=== PATIENT | female | born 1985 | race Caucasian/White ===

== ENCOUNTER → 2021-02-28 11:40 | Outpatient (CLI) | payer OTHER, SELFPAY ==
[2021-02-28 12:30] LABS: Absolute Lymphocyte Count 1.82 X10^3/uL (0.83-4.51); Absolute Neutrophil Count 2.9 X10^3/uL (2.0-7.7); Basophil# 0.04 X10^3/uL; Basophil% 0.7 % (0-1); Eosinophil# 0.07 X10^3/uL; Eosinophils% 1.3 % (0-5); Hematocrit 37.8 % (37-47); Hemoglobin 12.2 g/dL (12.0-15.0); Lymphocyte # 1.82 X10^3/ul (0.83-4.51); Lymphocyte % 33.7 % (19-41); Mean Corp Hgb Conc 32.3 g/dL (32-36); Mean Platelet Vol. 10.7 fl (6.2-12.0); Monocyte# 0.52 X10^3/uL; Monocyte% 9.6 % (0-10); NRBC Flagged by Analyzer 0 % (0-5); Neutrophil # 2.94 X10^3/uL (2.7-7.7); Neutrophil % 54.5 % (47-70); Platelet Count 286 K/mm3 (150-450); RBC Distribution Width SD 42.9 fl (35.1-43.9); White Blood Count 5.4 K/mm3 (4.4-11.0)
[2021-02-28 12:46] LABS: Hemoglobin A1c 5.1 % (3.8-5.6)
[2021-02-28 13:04] LABS: Vitamin D,25 Hydroxy 41.4 ng/mL
[2021-02-28 13:09] LABS: ALB/GLOB Ratio 1.2 RATIO (0.9-2.4); AST(SGOT) 17 U/L (15-37); Alanine Aminotransfer ALT/SGPT 34 U/L (13-56); Albumin, Serum 3.8 g/dL (3.2-5.0); Alkaline Phosphatase 43 U/L (45-117); Anion Gap 5 (5-15); BUN 11 mg/dL (7-18); Calcium,Total 8.6 mg/dL (8.5-10.1); Chloride 105 mmol/L (98-107); Cholesterol 144 mg/dL (200); Creatinine, Serum 0.69 mg/dL (0.55-1.02); EST Glomerular Filtration Rate 102 mL/min (>60); Est Glom Filt Rate - Afr Amer 124 mL/min (>60); Globulin 3.1 g/dL (2.2-4.2); Glucose 78 mg/dL (74-106); High Density Lipoprotein 66 mg/dL; Potassium 3.6 mmol/L (3.5-5.1); Protein, Total 6.9 g/dL (6.4-8.2); Sodium Level 138 mmol/L (136-145); Thyroid Stim Hormone (TSH) 1.13 uIU/mL (0.358-3.74); Triglycerides 61 mg/dL; Very Low Density Lipoprotein 12 mg/dL (5-40)
== END ==
PROVIDERS: PCP Internal Medicine; Referring Provider Internal Medicine; Visit Provider Internal Medicine
DX: E55.9 Vitamin D deficiency, unspecified (principal); Z13.1 Encounter for screening for diabetes mellitus; Z13.220 Encounter for screening for lipoid disorders
CPT/HCPCS: 36415; 80053; 80061; 82306; 83036; 84443; 85025

== ENCOUNTER → 2021-08-21 | Outpatient (CLI) | payer OTHER, SELFPAY ==
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
== END | disposition home or self-care (01) ==
LOC: RAD 12:08
PROVIDERS: PCP Internal Medicine; Referring Provider Chiropractor; Visit Provider Chiropractor
DX: S23.41XA Sprain of ribs, initial encounter (principal)
CPT/HCPCS: 71101

== ENCOUNTER → 2021-08-22 | Outpatient (CLI) | payer OTHER, SELFPAY ==
--- NOTE | 2021-08-22 19:25 | RAD_ITS ---
STUDY: X-RAY CHEST REASON FOR EXAM: Female, 36 years old. Abnormal chest x-ray, left infra hilar fullness TECHNIQUE: PA and lateral views of the chest. COMPARISON: Right rib series of 08/21/2021. FINDINGS: The frontal view again demonstrates soft tissue fullness at the inferior left lung hilum, unchanged, with a subtle 5 cm rounded area of corresponding soft tissue density projected anterior to the hilar regions on the lateral view. No pneumonia or peribronchial cuffing. Normal right lung hilum. No mediastinal widening. There is no demonstrated pleural abnormality. Normal heart size and pulmonary vasculature. Thoracic aorta is normal in caliber. Normal visualized thoracic spine. Normal visualized ribs, clavicles, and shoulders. There is no demonstrated abnormality of the visualized soft tissue structures of the upper abdomen. RAD/Chest PA and Lateral IMPRESSION: No significant interval change. Persistent soft tissue fullness at the inferior left lung hilum, possibly due to adenopathy. Chest CT again recommended for further characterization of this abnormality. Electronically Signed: Je Bass MD at 6:58 EDT ,
== END | disposition home or self-care (01) ==
LOC: RAD 19:20
PROVIDERS: PCP Internal Medicine; Visit Provider Internal Medicine
DX: R93.89 Abnormal findings on diagnostic imaging of other specified body structures (principal)
CPT/HCPCS: 71046

== ENCOUNTER → 2021-09-05 | Outpatient (CLI) | payer OTHER, SELFPAY ==
--- NOTE | 2021-09-05 16:59 | CT_ITS ---
EXAM: CT CHEST WITH INTRAVENOUS CONTRAST CLINICAL INDICATION: Abnormal cxr, left infrahilar fullness TECHNIQUE: Helically acquired images were obtained of the chest with intravenous contrast. This CT exam was performed using one or more of the following dose reduction techniques: automated exposure control, adjustment of the mA and/or kV according to patient size, and/or use of iterative reconstruction technique. This report was created using [employer] report generation technology. CONTRAST: IV 100mL Isovue-300 RADIATION DOSE: CTDIvol = 15.47 mGy, DLP = 289.93 mGy-cm COMPARISON: None. FINDINGS: LUNGS AND PLEURAL SPACES: See below. HEART: There is fluid density mass of the left side of the heart measuring 48 x 20 x 102 mm. This extends to the left hilum and is consistent for a pericardial cyst. No significant coronary artery calcifications. MEDIASTINUM: Unremarkable. No mediastinal or hilar adenopathy. Esophagus is unremarkable. No hiatal hernia. THYROID: Unremarkable. No thyroid lesions. BONES/JOINTS: Healing right anterior 3rd rib fracture. No suspicious lytic or blastic abnormality. VASCULATURE: Unremarkable. Thoracic aorta is non-dilated. No thoracic aortic dissection. No obvious central pulmonary embolism although this study was not performed with the pulmonary embolism protocol. CT/Chest WITH Contrast IMPRESSION: 1. Healing right anterior 3rd rib fracture. 2. There is fluid density mass of the left side of the heart measuring 48 x 20 x 102 mm. This extends to the left hilum and is consistent for a pericardial cyst. Electronically Signed: Davis Toth MD at 18:05 EDT ,
== END | disposition home or self-care (01) ==
LOC: CT 16:57
PROVIDERS: PCP Internal Medicine; Visit Provider Internal Medicine
DX: R93.89 Abnormal findings on diagnostic imaging of other specified body structures (principal)
CPT/HCPCS: 71260; Q9967

== ENCOUNTER → 2021-11-05 | Outpatient (CLI) | payer OTHER, SELFPAY ==
--- NOTE | 2021-11-05 14:54 | ECHOD_ITS ---
Version 2 Reason For Study: PERICARDIAL CYST Procedure This was a 2D Doppler, Color Flow transthoracic echocardiogram. The exam was of adequate technical quality. Exam performed in department. Left Ventricle Normal LV size. Left ventricular systolic function is normal. The estimated ejection fraction is 65 %. No evidence for diastolic dysfunction. Right Ventricle Normal RV size. Normal systolic function. Atria Normal left atrium. Normal right atrium. No doppler evidence for ASD. Mitral Valve There is no mitral annular calcification. Normal mitral valve. Trivial mitral valve insufficiency. Tricuspid Valve Normal tricuspid valve. Trivial tricuspid valve insufficiency. Unable to estimate RV systolic pressure due to insufficient tricuspid regurgitant envelope. Aortic Valve Trisinus/trileaflet aortic valve. Normal aortic valve. Pulmonic Valve Normal pulmonic valve. Trivial pulmonic valve insufficiency. Great Vessels Normal sized aortic root. Pericardium/Pleural No pericardial effusion. MMode/2D Measurements & Calculations LVIDd: 4.9 cm IVSd: 0.58 cm Ao root diam: 3.0 cm LVIDs: 3.2 cm LVPWd: 0.80 cm RVDd: 3.1 cm FS: 34.0 % LAV(MOD-sp4): 38.1 ml LVAd ap4: 28.7 cm2 SV(MOD-sp4): 54.4 ml LVLd ap4: 7.5 cm EDV(MOD-sp4): 91.9 ml EDV(sp4-el): 92.7 ml LVAs ap4: 16.2 cm2 LVLs ap4: 5.7 cm ESV(MOD-sp4): 37.4 ml ESV(sp4-el): 39.1 ml EF(MOD-sp4): 59.3 % EF(sp4-el): 57.8 % SV(sp4-el): 53.6 ml LA A4 area: 14.8 cm2 LA dimension(2D): 3.7 cm RA A4 area: 15.7 cm2 Time Measurements MV dec time: 0.13 sec Doppler Measurements & Calculations MV E max roge: 82.6 cm/sec Lat Peak E' Roge: 16.5 cm/sec Med Peak E' Roge: 9.8 cm/sec MV A max roge: 70.0 cm/sec E/E' lat: 5.0 E/E' med: 8.4 MV E/A: 1.2 MV V2 max: 105.3 cm/sec Ao V2 max: 130.1 cm/sec MV max P.4 mmHg MV dec slope: 806.3 cm/sec2 Ao max P.8 mmHg MV V2 mean: 58.5 cm/sec Ao V2 mean: 93.6 cm/sec MV mean P.6 mmHg Ao mean P.0 mmHg MV V2 VTI: 28.9 cm Ao V2 VTI: 30.2 cm AV (velocity ratio): 0.79 LV V1 max: 111.0 cm/sec PA V2 max: 106.6 cm/sec LV V1 max P.9 mmHg PA V2 mean: 74.8 cm/sec LV V1 mean P.8 mmHg LV V1 mean: 77.9 cm/sec LV V1 VTI: 23.9 cm ECHO/Echo Complete Interpretation Summary Left ventricular systolic function is normal. The estimated ejection fraction is 65 %. Trivial mitral valve insufficiency. Trivial tricuspid valve insufficiency. Trivial pulmonic valve insufficiency. Unable to estimate RV systolic pressure due to insufficient tricuspid regurgita nt envelope. No evidence for diastolic dysfunction. Addendum: Based upon further review of the 2D echocardiographic images obtained there magdaleno ears to be, on select images, the appearance of a small area of echolucency near the lateral aspect o f the left ventricle of uncertain etiology-a pericardial cyst may not necessarily be able to be excl uded. Ordering Physician: Ivania Sparks Referring Physician: Ivania Sparks Performed By: Virginia Pickard RCS
== END | disposition home or self-care (01) ==
PROVIDERS: PCP Internal Medicine; Referring Provider Internal Medicine; Visit Provider Internal Medicine
DX: Q24.8 Other specified congenital malformations of heart (principal)
CPT/HCPCS: 93306

== ENCOUNTER → 2022-03-05 | Outpatient (CLI) | payer OTHER, SELFPAY ==
--- NOTE | 2022-03-05 10:59 | ECHOL_ITS ---
Reason For Study: PERICARDIAL CYST Procedure This was a limited 2D transthoracic echocardiogram. Limited views were obtained. Exam performed in department. Left Ventricle Left ventricular systolic function is normal. The estimated ejection fraction is 65 %. Right Ventricle Normal systolic function. Atria Normal left atrium. Normal right atrium. Mitral Valve There is no mitral annular calcification. Normal mitral valve. Tricuspid Valve Normal tricuspid valve. Aortic Valve Trisinus/trileaflet aortic valve. Normal aortic valve. Pulmonic Valve The pulmonic valve is not well visualized. Pericardium/Pleural No pericardial effusion. MMode/2D Measurements & Calculations LVIDd: 4.6 cm IVSd: 0.93 cm LAV(MOD-bp): 45.2 ml LVIDs: 3.4 cm LVPWd: 1.1 cm LAV(MOD-bp) Indexed: 23.6 ml/m2 FS: 24.3 % LAV(MOD-sp2): 54.8 ml LAV(MOD-sp4): 32.6 ml LVAd ap4: 30.8 cm2 SV(MOD-sp4): 59.9 ml SV(sp4-el): 61.1 ml LVLd ap4: 8.6 cm EDV(MOD-sp4): 94.3 ml EDV(sp4-el): 93.0 ml LVAs ap4: 16.3 cm2 LVLs ap4: 7.1 cm ESV(MOD-sp4): 34.3 ml ESV(sp4-el): 31.9 ml EF(MOD-sp4): 63.6 % EF(sp4-el): 65.7 % LA A4 area: 14.2 cm2 LA dimension(2D): 3.7 cm RA A4 area: 10.8 cm2 ECHO/Echo, Limited Study Interpretation Summary Limited views were obtained. Left ventricular systolic function is normal. The estimated ejection fraction is 65 %. Based upon 2D echocardiographic images obtained there appears to be, on select images, the appearance of a small area of echolucency near the lateral aspect of the left v entricle of uncertain etiology-a pericardial cyst may not necessarily be able to be excluded. Compared with the previous transthoracic echocardiogram from 11-05-2021 there ar e similar type changes. Ordering Physician: Ernesto Agudelo Referring Physician: Ernesto Agudelo Performed By: Virginia Pickard RCS
== END | disposition home or self-care (01) ==
LOC: CVS 10:58
PROVIDERS: PCP Internal Medicine; Referring Provider Internal Medicine Cardiovascular Disease; Visit Provider Internal Medicine Cardiovascular Disease
DX: Q24.8 Other specified congenital malformations of heart (principal)
CPT/HCPCS: 93308

== ENCOUNTER → 2023-05-22 | Outpatient (CLI) | payer BC, SELFPAY ==
--- NOTE | 2023-05-22 07:09 | ECHOD_ITS ---
Reason For Study: PERICARDIAL CYST Procedure This was a 2D Doppler, Color Flow transthoracic echocardiogram. Exam performed in department. Left Ventricle Normal LV size. Left ventricular systolic function is normal. The estimated ejection fraction is 60 %. No regional wall motion abnormalities noted. Right Ventricle Normal RV size. Normal systolic function. Atria Normal left atrium. Normal right atrium. Mitral Valve Normal mitral valve. Mild (1+) eccentric mitral valve insufficiency. Tricuspid Valve Normal tricuspid valve. Mild tricuspid valve insufficiency. Pulmonary artery systolic pressure is 20 mmHg. Aortic Valve Normal aortic valve. Pulmonic Valve Normal pulmonic valve. Mild (1+) pulmonic valve insufficiency. Great Vessels Normal aortic root. The pulmonary artery is normal size. Normal inferior vena cava. Pericardium/Pleural No pericardial effusion. MMode/2D Measurements & Calculations LVIDd: 4.9 cm IVSd: 0.81 cm Ao root diam: 2.9 cm LVIDs: 3.3 cm LVPWd: 1.0 cm RVDd: 3.6 cm FS: 32.6 % LAV(MOD-bp): 39.7 ml LVAd ap4: 32.2 cm2 SV(MOD-sp4): 68.2 ml LAV(MOD-bp) Indexed: 23.4 ml/m2 LVLd ap4: 8.4 cm LAV(MOD-sp2): 40.5 ml EDV(MOD-sp4): 104.0 ml LAV(MOD-sp4): 35.2 ml EDV(sp4-el): 105.0 ml LVAs ap4: 16.7 cm2 LVLs ap4: 6.6 cm ESV(MOD-sp4): 35.8 ml ESV(sp4-el): 36.2 ml EF(MOD-sp4): 65.6 % EF(sp4-el): 65.5 % SV(sp4-el): 68.8 ml LA A4 area: 15.7 cm2 LA dimension(2D): 3.2 cm RA A4 area: 16.3 cm2 TAPSE: 2.4 cm Time Measurements MV dec time: 0.20 sec Doppler Measurements & Calculations MV E max roge: 71.2 cm/sec Lat Peak E' Roge: 17.4 cm/sec Med Peak E' Roge: 13.3 cm/sec MV A max roge: 61.3 cm/sec E/E' lat: 4.1 E/E' med: 5.3 MV E/A: 1.2 Ao V2 max: 122.0 cm/sec LV V1 max: 107.1 cm/sec PA V2 max: 79.6 cm/sec Ao max P.0 mmHg LV V1 max P.6 mmHg PI end-d roge: 78.6 cm/sec TR max roge: 196.9 cm/sec TR max P.5 mmHg ECHO/Echo Complete Interpretation Summary Normal LV size. Left ventricular systolic function is normal. The estimated ejection fraction is 60 %. Mild (1+) eccentric mitral valve insufficiency. Ordering Physician: Yaima Mina Referring Physician: LEIGHANN PITTS Performed By: Kiana Forte RDCS
--- OUTSIDE RECORDS SUMMARY | 2023-05-22 07:11 | XMS RPT_ITS | CCD ---
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 Role Phone TYLER EAST Primary Care Unavail SAI Mcclain Attending Unavail Tyler Morales Primary Care Provider U viola Rhodes MD, Koki Garcia Primary Care Provider Ernesto Agudelo Unavailable Clare PULLIAM, Ivania Bauman Unavailable [phone] Medications Current Medications Medication Drug Class(es) Dates Sig (Normalized) Sig (Original) amoxicillin 500 mg oral capsule (1 source) Penicillin-class Antibacterial Start: 07-05-2018 End: 07-15-2018 take 1 capsule by mouth twice daily amoxicillin (AMOXIL) 500 MG capsule Indications: Sore throat Take 1 (one) capsule (500 mg total) by mouth 2 (two) times a day for 10 days . 20 capsule 0 07/05/2018 07/15/2018 Active prenat.vits,almas,mi u-zwhq-yppqg Tab (1 source) prenat.vits,almas, m ic-xcet-qmmxj Tab Take by mouth . 0 Active Problems Active Problems Problem Classification Problem Date Documented Da te Episodic/Chronic Other upper respiratory infections (3 sources) Acute pharyngitis, unspecified; Translations: [Sore throat symptom] Onset: 07-05-2018 Episodic Past or Other Problems Problem Classification Problem Date Documented Da te Episodic/Chronic Abdominal pain (1 source) Umbilical pain; Translations: [Periumbilical pain] Onset: 09-01-2011 09-01-2011 Episodic NEGATED: Highlighted row has been ruled out!Unclassified (1 source) No known active problems Results Test Name Value Interpretation Reference Range Facil ity Vital Signs Date Time Vital Sign Value Performing Clinician Faci lity 07-05-2018 15:43-0400 BMI (Body Mass Index) 28.41 kg/m2 Saibhavesh Mallory [facility] 07-05-2018 15:43-0400 Body Temperature 98.2 [degF] Saibhavesh Mallory [facility] 07-05-2018 15:43-0400 Body weight 79.83 kg Saibhavesh Mallory [facility] 07-05-2018 15:43-0400 BP Diastolic 73 mm[Hg] Sai Conn [facility] 07-05-2018 15:43-0400 BP Systolic 111 mm[Hg] Saibhavesh Mallory [facility] 07-05-2018 15:43-0400 Height 167.6 cm Sai [facility] 07-05-2018 15:43-0400 Pulse (Heart Rate) 79 /min Sai [facility] 07-05-2018 15:43-0400 Pulse Oximetry 98 % Sai [facility] 07-05-2018 15:43-0400 Respiratory Rate 16 /min Sai Conn [facility] Encounters Encounter Date Encounter Type Care Provider Facility Start: 03-20-2022 Telephone encounter Zeeshan puckett MD Work Phone: Cardiothoracic Procedures Date Procedure Procedure Detail Performing Clinician Start: 07-05-2018 Streptococcus pyogen es antigen assay Sai Mallory Work Phone: Plan of Treatment Date Care Activity Detail Author Start: 01-31-2023 Tetanus vaccination TETANUS EVERY 10 YR [facility] Start: 01-31-2023 Urine microalbumin profile DTA P,TDAP,TD (2 - Td or Tdap) [facility] Start: 11-21-2021 Influenza vaccination INFLUENZA (#1) [facility] Start: 03-23-2021 DEPRESSION ASSESSMENT DEPRESSION ASS ESSMENT [facility] Start: 11-21-2017 Influenza vaccinatio n given SEQUENTIAL INFLUENZA VACCINE (#1) [facility] Start: 07-08-2016 PAP TESTING PAP TESTING [facility] Start: 2015 HPV TESTING HPV TESTING [facility] Start: 2003 HEPATITIS C SCREENING HEPATITIS C SC RILEY [facility] Start: 01-24-1988 History and physical examination, annual for health maintenance Wellness Visit [facility] Start: 1985 COVID-19 VACCINE (#1) COVID-19 VACCI NE (#1) [facility] Start: 1985 HEPATITIS B (1 of 3 - 3-dose series) HEPATITIS B (1 of 3 - 3-dose series) [facility] Start: 1985 Screening for malign ant neoplasm of cervix PAP SMEAR [facility] End: 07-06-2019 S. pyogenes Org specific cx Ql (Throat) Strep A Culture, Throat Routine Sore throat 1 Occurrences starting 07/05/2018 until 07/06/2019 [facility] Immunizations Immunization Date Immunization Notes Care Provider Eufemia mac 01-31-2013 tetanus toxoid, redu lalitha diphtheria toxoid, and acellular pertussis vaccine, adsorbed Zeeshan Abernathy MD Work Phone: [facility] Payers Date Payer Category Payer Unknown MMO MMO [employer] [id number] 2018-Present [phone] [address] [place] [address] PPO [id number] 2018 Unknown [id number] 2018 Unknown MMO MED [employer] PPO xxxxxxxxxxxx 2018-Present xxxxxxxxxxxx [id number] 1985 Unknown [id number] Social History Date Type Detail Facility Start: 06-05-2011 End: 07-05-2018 Tobacco smoking status NHIS Never smoker [facility] Work Phone: Start: 07-05-2018 History SDOH Alcohol Frequency 1 [facility] Start: 03-06-2018 [facility] Start: 1985 Sex Assigned At Not on file [facility] Start: 06-05-2011 Tobacco use and exposure Smokeless tobacco non-user [facility] Work Phone: Start: 11-03-2021 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 Dr. Abernathy has reviewed the available records and said that if patient is indeed asymptomatic then no intervention is necessary at this time. Spoke with patient and she reports that she is asymptomatic, denies SOB. In this case advised her that Dr. Abernathy suggests she monitor this with regular echos every few years . Instructed her that should she develop symptoms and/or wish to be evaluated further at [facility] to please call our offices. Alexandra Montiel RN documented in this encounter [facility] Summary Purpose Family History No Family History Records FoundNo Family History Records FoundNo Family History Records Found Advance Directives No Advanced Directives Records Found Patient has advance care planning documents on file. For more information, please contact: [place] [phone] No Advanced Directives Records FoundNo Advanced Directives Records Found Instructions * Patient Instructions* Sai Mallory, THIAGO - 07/05/2018 4:14 PM EDT Sore Throat: Care Instructions Your Care Instructions Infection by bacteria or a virus causes most sore throats. Cigarette smoke, dry air, air pollution,allergies, and yelling can also cause a sore throat. Sore throats can be painful and annoying. Fortunately, most sore throats go away on their own. If you have a bacterial infection, your doctor may prescribe antibiotics. Follow-up care is a [place] part of your treatment and safety. Be sure to make and go to all appointments, and call your doctor if you are having problems. It's also a good idea to know your test resultsand keep a list of the medicines you take. How can you care for yourself at home? If your doctor prescribed antibiotics, take them as directed. Do not stop taking them just because you feel better. You need to take the full course of antibiotics. Gargle with warm salt water once an hour to help reduce swelling and relieve discomfort. Use 1 teaspoon of salt mixed in 1 cup of warm water. Take an qtgt-lsg-ssrqkxm pain medicine, such as acetaminophen (Tylenol), ibuprofen (Advil, Motrin),or naproxen (Aleve). Read and follow all instructions on the label. Be careful when taking szcb-fls-pjurldk cold or flu medicines and Tylenol at the same time. Many ofthese medicines have acetaminophen, which is Tylenol. Read the labels to make sure that you are nottaking more than the recommended dose. Too much acetaminophen (Tylenol) can be harmful. Drink plenty of fluids. Fluids may help soothe an irritated throat. Hot fluids, such as tea or soup, may help decrease throat pain. Use yygw-uil-jejtyim throat lozenges to soothe pain. Regular cough drops or hard candy may also help. These should not be given to young children because of the risk of choking. Do not smoke or allow others to smoke around you. If you need help quitting, talk to your doctor about stop-smoking programs and medicines. These can increase your chances of quitting for good. Use a vaporizer or humidifier to add moisture to your bedroom. Follow the directions for cleaning the machine. When should you call for help? Call your doctor now or seek immediate medical care if: You have new or worse trouble swallowing. Your sore throat gets much worse on one side. Watch closely for changes in your health, and be sure to contact your doctor if you do not get better as expected. Where can you learn more? Log into your personal health record on [email or web address] [email or web address].[email or web address] and enter U420 in the Education box to learn more about Sore Throat: Care Instructions. Current as of: January 10, 2018 Content Version: 12.0 9691-9046 [employer]. Care instructions adapted under license by your healthcare professional. If you have questions about a medical condition or this instruction, always ask your healthcare professional. [employer] disclaims any warranty or liability for your use of this information. Rapid strep test is negative. Culture results in 72 hours. Take prescription if notified of positive throat culture. Follow up in three to five days if unimproved. Go to the Emergency Department if symptoms worsen. documented in this encounter History of Present Illness * Sai Mallory CNP - 07/05/2018 3:54 PM EDT PATIENT NAME: Quynh Martinez [facility] [address] [facility] [address] : 1985 DATE OF VISIT: 07/05/2018 #: [id number] PROVIDER: Sai Mallory CNP Chief Complaint Patient presents with Sore Throat sore throat and sinus congestion x 3-4 days child had strep throat last week 19 weeks SUBJECTIVE 33 y.o. female presents Sore Throat (sore throat and sinus congestion x 3-4 days child had strep throat last week 19 weeks ) Client with ST and sinus congestion. States her daughter was positive for strep a week ago Thursday. Sore Throat This is a new problem. The current episode started in the past 7 days. The problem has been unchanged. Neither side of throat is experiencing more pain than the other. There has been no fever. The pain is at a severity of 1/10. The pain is mild. Associated symptoms include congestion, headaches, a hoarse voice and swollen glands. Pertinent negatives include no abdominal pain, coughing, diarrhea, ear pain, plugged ear sensation, shortness of breath or vomiting. She has had exposure to strep. Shehas tried nothing for the symptoms. MEDICAL ISSUES History reviewed. No pertinent past medical history. There is no problem list on file for this patient. SOCIAL HISTORY Social History Socioeconomic History Marital status: Spouse name: Not on file Number of children: Not on file Years of education: Not on file Highest education level: Not on file Social Needs Financial resource strain: Not on file Food insecurity - worry: Not on file Food insecurity - inability: Not on file Transportation needs - medical: Not on file Transportation needs - non-medical: Not on file Occupational History Not on file Tobacco Use Smoking status: Never Smoker Smokeless tobacco: Never Used Substance and Sexual Activity Alcohol use: Never Frequency: Never Drug use: Never Sexual activity: Not on file Other Topics Concern Not on file Social History Narrative Not on file FAMILY HISTORY History reviewed. No pertinent family history. REVIEW OF SYSTEMS Review of Systems Constitutional: Positive for appetite change. Negative for activity change, chills, diaphoresis, fatigue and fever. HENT: Positive for congestion, hoarse voice, sinus pressure, sinus pain and sore throat. Negative for ear pain. Respiratory: Negative for cough, chest tightness, shortness of breath and wheezing. Cardiovascular: Negative for chest pain. Gastrointestinal: Negative for abdominal pain, diarrhea, nausea and vomiting. Genitourinary: Normal urination. Musculoskeletal: Negative for arthralgias and myalgias. Skin: Negative for rash. Neurological: Positive for headaches. MEDICATIONS PRIOR TO VISIT Current Outpatient Medications on File Prior to Visit Medication Sig Dispense Refill prenat.vits,almas,pqs-vzqr-sybpw Tab Take by mouth . No current facility-administered medications on file prior to visit. ALLERGIES/INTOLERANCES No Known Allergies OBJECTIVE BP 111/73 Pulse 79 Temp 98.2 F (36.8 C) Resp 16 Ht 5' 6 Wt 79.8 kg (176 lb) SpO2 98% BMI 28.41 kg/m Physical Exam Constitutional: She is oriented to person, place, and time. She appears well- developed and well-nourished. HENT: Head: Normocephalic and atraumatic. Right Ear: Tympanic membrane, external ear and ear canal normal. Left Ear: Tympanic membrane, external ear and ear canal normal. Nose: Mucosal edema present. Right sinus exhibits no maxillary sinus tenderness and no frontal sinus tenderness. Left sinus exhibits no maxillary sinus tenderness and no frontal sinus tenderness. Mouth/Throat: Uvula is midline and mucous membranes are normal. Posterior oropharyngeal erythema present. No oropharyngeal exudate or posterior oropharyngeal edema. Neck: Neck supple. Cardiovascular: Normal rate, regular rhythm and normal heart sounds. Pulmonary/Chest: Effort normal and breath sounds normal. No respiratory distress. She has no wheezes. She has no rales. Lymphadenopathy: She has cervical adenopathy. Neurological: She is alert and oriented to person, place, and time. Skin: Skin is warm and dry. Psychiatric: She has a normal mood and affect. Nursing note and vitals reviewed. PROCEDURE Procedures Results Recent Results (from the past 168 hour(s)) POC Rapid Strep A Collection Time: 07/05/18 4:08 PM Result Value Ref Range Strep A Screen Negative Negative ASSESSMENT/PLAN (expressed as patient instructions): SNOMED CT(R) 1. Sore throat SORE THROAT SYMPTOM POC Rapid Strep A Strep A Culture, Throat Strep A Culture, Throat amoxicillin (AMOXIL) 500 MG capsule No follow-ups on file. ADDITIONAL CLINICAL COMMENTS Client is not local and prefers a printed script to hold. She will fill the prescription if she is notified of positive culture results. ORDERS PLACED THIS VISIT Orders Placed This Encounter Procedures Strep A Culture, Throat POC Rapid Strep A MEDICATION LIST AT END OF VISIT Current Outpatient Medications Medication Sig Dispense Refill prenat.vits,almas,mek-kanh-fdwtt Tab Take by mouth . amoxicillin (AMOXIL) 500 MG capsule Take 1 (one) capsule (500 mg total) by mouth 2 (two) times a day for 10 days . 20 capsule 0 No current facility-administered medications for this visit. documented in this encounter Assessments Diagnosis Sore throat- Primary Acute pharyngitis Additional Source Comments INFORMATION SOURCE (unrecogn ized section and content) DATE CREATED AUTHOR AUTHOR'S ORGANIZ ATION 11/17/2020 [facility] ([place]) DATE CREATED AUTHOR AUTHOR'S ORGANIZ ATION 03/20/2022 [facility] Reason for Visit (unrecogniz ed section and content) Reason Comments Case Review Source Comments (unrecognize d section and content) In the event this informatio n is protected by the Federal Confidentiality of Alcohol and Drug Abuse Patient Records regulations: The Federal rules restrict any use of the information to criminally investigate or prosecute any alcohol or drug abuse patient.[facility] Care Teams (unrecognized sec tion and content) FOR RECORDS PERTAINING TO PATIENTS WHO ARE OR HAVE BEEN ENROLLED IN A CHEMICAL DEPENDENCY/SUBSTANCEABUSE PROGRAM, SOME INFORMATION MAY BE OMITTED. This clinical summary was aggregated from multiple sources. Caution should be exercised in using it in the provision of clinical care. This summary normalizes information from multiple sources, and as a consequence, information in this document may materially change the coding, format and clinical context of patient data. In addition, data may be omitted in some cases. CLINICAL DECISIONS SHOULD BE BASED ON THE PRIMARY CLINICAL RECORDS. [facility]. provides no warranty or guarantee of the accuracy or completeness of information in this document.
== END | disposition home or self-care (01) ==
LOC: CVS 07:09
PROVIDERS: PCP Internal Medicine; Referring Provider Nurse Practitioner Gerontology; Visit Provider Nurse Practitioner Gerontology
DX: Q24.8 Other specified congenital malformations of heart (principal)
CPT/HCPCS: 93306

== ENCOUNTER → 2024-04-27 | Outpatient (CLI) | payer BC, SELFPAY ==
--- NOTE | 2024-04-27 09:45 | CT_ITS ---
EXAM: CT Abdomen, Pelvis and Lumbar Spine With Intravenous Contrast CLINICAL INDICATION: TECHNIQUE: Axial computed tomography images of the abdomen, pelvis and lumbar spine with intravenous contrast. This CT exam was performed using one or more of the following dose reduction techniques: automated exposure control, adjustment of the mA and/or kV according to patient size, and/or use of iterative reconstruction technique. Oral contrast was administered. COMPARISON: No relevant prior studies available. FINDINGS: LUNG BASES: Unremarkable. No mass. No consolidation. ABDOMEN: LIVER: Mild hepatomegaly. GALLBLADDER AND BILE DUCTS: Unremarkable. No calcified stones. No ductal dilation. PANCREAS: Unremarkable. No mass. No ductal dilation. SPLEEN: Unremarkable. No splenomegaly. ADRENALS: Unremarkable. No mass. KIDNEYS AND URETERS: 2 mm calculus of the right renal pelvis without obstruction. STOMACH AND BOWEL: Fecal retention in the colon consistent with constipation. No obstruction. No mucosal thickening. PELVIS: APPENDIX: No findings to suggest acute appendicitis. BLADDER: Unremarkable. No mass. REPRODUCTIVE: Unremarkable as visualized. LUMBAR SPINE: VERTEBRAE: Unremarkable. No acute fracture. DISCS/SPINAL CANAL/NEURAL FORAMINA: No acute findings. No significant spinal canal stenosis. ABDOMEN and PELVIS: INTRAPERITONEAL SPACE: Unremarkable. No free air. No significant fluid collection. BONES/JOINTS: No acute fracture. No dislocation. SOFT TISSUES: Unremarkable. VASCULATURE: Unremarkable. No abdominal aortic aneurysm. LYMPH NODES: Unremarkable. No enlarged lymph nodes. CT/Abdomen/Pel W ORAL Cont Only IMPRESSION: 1. Mild hepatomegaly. 2. 2 mm calculus of the right renal pelvis without obstruction. 3. Fecal retention in the colon consistent with constipation. Reading [facility]
== END | disposition home or self-care (01) ==
LOC: CT 09:38
PROVIDERS: PCP Internal Medicine; Referring Provider Internal Medicine; Visit Provider Internal Medicine
DX: R10.9 Unspecified abdominal pain (principal)
CPT/HCPCS: 74176